=== PATIENT | male | born 1960 | race African-American/Black ===

== ENCOUNTER 2019-09-15 10:34 | Emergency (ER) | payer OTHER ==
[2019-09-15 10:39] VITALS: BP 100/56
--- NOTE | 2019-09-15 10:51 | ER Document Report ---
ED Medical Screen (RME) - General Chief Complaint: Hip Injury Stated Complaint: FALL/LEFT HIP PAIN Time Seen by Provider: 09/15/19 10:48 Mode of Arrival: Wheelchair Information source: Patient Notes: 59-year-old male presented to ED for complaint of pain to the left hip after tripping and falling last night. 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 His sister drove him to the emergency room due to not being able to walk on the left hip. He is on a pacemaker for syncopal episode he is also has diabetes and high cholesterol. He states he already wears braces due to not being able to stand up straight on both legs. I have greeted and performed a rapid initial assessment of this patient. A comprehensive ED assessment and evaluation of the patient, analysis of test results and completion of medical decision making process will be conducted by an additional ED providers. - Related Data Allergies/Adverse Reactions: No Known Allergies Allergy (Unverified 09/15/19 10:47) Physical Exam - Vital signs Vitals: Temp Pulse Resp BP Pulse Ox 97.9 F 98 16 100/56 L 98 09/15/19 10:38 09/15/19 10:38 09/15/19 10:38 09/15/19 10:38 09/15/19 10:38 Course - Vital Signs Vital signs: Temp Pulse Resp BP Pulse Ox 97.9 F 98 16 100/56 L 98 09/15/19 10:38 09/15/19 10:38 09/15/19 10:38 09/15/19 10:38 09/15/19 10:38
--- NOTE | 2019-09-15 11:48 | RADIOLOGY REPORT (SQ) ---
EXAM DESCRIPTION: HIP LEFT AP/LATERAL COMPLETED DATE/TIME: 09/15/2019 11:18 am REASON FOR STUDY: fall pain with fletcher movement COMPARISON: None. NUMBER OF VIEWS: Two views. TECHNIQUE: AP pelvis and additional frog-leg view of the left hip. LIMITATIONS: None. FINDINGS: MINERALIZATION: Normal. LEFT HIP: No fracture or dislocation. No worrisome bone lesions. RIGHT HIP: No fracture or dislocation. No worrisome bone lesions. PUBIS AND ISCHIUM: No fracture. PELVIS: No fracture. SACRUM: No fracture or dislocation. No worrisome bone lesions. LOWER LUMBAR SPINE: No fracture or dislocation. No worrisome bone lesions. No significant disc disea se. SOFT TISSUES: No findings. OTHER: No other significant finding. IMPRESSION: NEGATIVE STUDY OF THE LEFT HIP AND PELVIS. NO RADIOGRAPHIC EVIDENCE OF ACUTE INJURY. TECHNICAL DOCUMENTATION: JOB ID: [id number] [employer]- All Rights Reserved Reading location - IP/workstation name: [email or web address]
[2019-09-15 12:11] LABS: ABSOLUTE BASOPHILS # (AUTO) 0.1 10^3/uL (0.0-0.2); ABSOLUTE EOSINOPHILS # (AUTO) 0.1 10^3/uL (0.0-0.6); ABSOLUTE LYMPHOCYTES (AUTO) 0.5 10^3/uL (0.5-4.7); ABSOLUTE MONOCYTES (AUTO) 0.3 10^3/uL (0.1-1.4); ABSOLUTE NEUT (AUTO) 3.1 10^3/uL (1.7-8.2); BASOPHILS % (AUTO) 1.2 % (0-2); EOSINOPHILS % (AUTO) 2.5 % (0-6); HEMATOCRIT 24.8 % (37.9-51.0); HEMOGLOBIN 8.2 g/dL (13.5-17.0); LYMPHOCYTES % (AUTO) 12.1 % (13-45); MEAN CORPUSCULAR HEMOGLOBIN 31.4 pg (27.0-33.4); MEAN CORPUSCULAR VOLUME 95 fl (80-97); MONOCYTES % (AUTO) 7.5 % (3-13); PLATELET COUNT 139 10^3/uL (150-450); RED BLOOD COUNT 2.61 10^6/uL (4.35-5.55); RED CELL DISTRIBUTION WIDTH 12.4 % (11.5-14.0); SEGMENTED NEUTROPHILS % (AUTO) 76.7 % (42-78); TOTAL CELLS COUNTED % (AUTO) 100 %; WHITE BLOOD COUNT 4.1 10^3/uL (4.0-10.5)
[2019-09-15 12:26] LABS: ALBUMIN 3.7 g/dL (3.5-5.0); ALKALINE PHOSPHATASE 158 U/L (38-126); ANION GAP 9 (5-19); ASPARTATE AMINO TRANSFERASE 31 U/L (17-59); BILIRUBIN,DIRECT 0.1 mg/dL (0.0-0.4); BILIRUBIN,TOTAL 0.6 mg/dL (0.2-1.3); BLOOD UREA NITROGEN 41 mg/dL (7-20); CARBON DIOXIDE 14 mmol/L (22-30); CHLORIDE 120 mmol/L (98-107); GLUCOSE 121 mg/dL (75-110); TOTAL PROTEIN 6.8 g/dL (6.3-8.2)
[2019-09-15] MEDS ORDERED: FENTANYL CITRATE INJ/PF 100 MCG/2 ML AMPUL IV PRN (13:11)
[2019-09-15] MEDS ORDERED: ONDANSETRON HCL INJ/PF 4 MG/2 ML SDV IV ONE (13:11)
[2019-09-15] MEDS ORDERED: 1/2 NORMAL SALINE 1,000 ML with SODIUM BICARBONATE 50 MEQ IV ONE ×2 (13:12)
--- NOTE | 2019-09-15 13:20 | ER Document Report ---
ED General - General Chief Complaint: Fall Stated Complaint: FALL/LEFT HIP PAIN Time Seen by Provider: 09/15/19 10:48 Mode of Arrival: Wheelchair TRAVEL OUTSIDE OF THE [place] IN LAST 30 DAYS: No - HPI Notes: Mr. Mandeep Gómez is a moderately debilitated 59-year-old male with a chief complaint of fall and injury to his left hip. Patient is visiting here from the [facility]. This man has a long-standing history of well-controlled type 1 diabetes on insulin pump. This is been complicated by diabetic peripheral neuropathy and he walks with a quad cane and use of bilateral AFO orthoses due to chronic gait instability. He says around 3:00 this morning he attempted to g et up to the bathroom and stumbled falling on his left hip. He was subsequently able to get back to bed but the hip is painful and he is having difficulty bearing weight on it. This man has a pacemaker which was placed several years ago because of syncopal episodes. There was no syncope or presyncope today and he denies any injury to head or neck. Patient has known history of chronic kidney disease. He is currently on no specific therapy for this. He has been told he is approaching need for dialysis but is not yet dialyzed. He denies any peripheral edema, dyspnea or chest pain at this time. He denies nausea or vomiting at this time. Pertinent prior history: Pacemaker Glaucoma Hyperlipidemia Diabetes mellitus type 1 Diabetic peripheral neuropathy Chronic kidney disease Denies alcohol or illicit drug use. Non-smoker. No allergies. - Related Data Allergies/Adverse Reactions: No Known Allergies Allergy (Unverified 09/15/19 10:47) Home Medications: asa, atorvastatin, admelog, vit d Past Medical History - General Information source: Patient, Relative - Social History Smoking Status: Never Smoker Chew tobacco use (# tins/day): No Frequency of alcohol use: None Drug Abuse: None Family History: Reviewed & Not Pertinent Patient has suicidal ideation: No Patient has homicidal ideation: No Endocrine Medical History: Reports: Hx Diabetes Mellitus Type 1 Past Surgical History: Reports: Hx Orthopedic Surgery Review of Systems - Review of Systems Notes: Constitutional: Negative for fever. HENT: Negative for sore throat. Eyes: Negative for visual changes. Cardiovascular: Negative for chest pain. Respiratory: Negative for shortness of breath. Gastrointestinal: Negative for abdominal pain, vomiting or diarrhea. Genitourinary: Negative for dysuria. Musculoskeletal: Negative for back pain. Skin: Negative for rash. Neurological: Negative for headaches, weakness or numbness. 10 point ROS negative except as marked above and in HPI. Physical Exam - Vital signs Vitals: Temp Pulse Resp BP Pulse Ox 97.9 F 98 16 100/56 L 98 09/15/19 10:38 09/15/19 10:38 09/15/19 10:38 09/15/19 10:38 09/15/19 10:38 - Notes Notes: GENERAL: Well-developed well-nourished appearing in no acute distress. SKIN: Pale. Good turgor no rashes. HEAD: Normocephalic atraumatic. EYES: PERRLA. EOMI. Pale conjunctivae and sclerae clear. EARS: CANALS AND TMS CLEAR. NOSE: CLEAR. MOUTH: Moist mucosa. Good dentition. No stridor or edema. No drooling. Throat: Clear. NECK: Supple. No masses or thyromegaly. No adenopathy. Carotids 2+ without bruits. No JVD. BACK: Symmetrical without tenderness. CHEST: Pacemaker left anterior chest wall. Respirations unlabored. Breath sounds clear and symmetrical. HEART: Regular rhythm. No murmur gallop or rub. ABDOMEN: Soft nontender without masses, organomegaly or rebound. Bowel sounds normally active. No bruits. GENITALIA: Deferred. EXTREMITIES: Patient is wearing AFO braces both ankles. He is moderately tender over the lateral aspect of the left hip joint without step-off or crepitus. There is no shortening or abnormal rotation. He resists movements of the left hip in all planes secondary to pain. No edema. No calf tenderness. Cap refill less than 1.5 seconds. Dorsalis pedis and posterior tibial pulses 3+ and symmetrical. NEUROLOGICAL: GCS 15. Alert and oriented x3. Normal gait. Fluent speech. Cranial nerves II through XII intact. Diminished sensation both lower legs consistent with known diabetic peripheral neuropathy. Course - Re-evaluation Re-evalutation: 09/15/19 18:43 Patient had plain imaging of his left hip and pelvis which showed no obvious fracture. He was however very tender over his left hip and initially reluctant to bear weight. He received pain medication IV fentanyl. CT was obtained and showed no evidence of fracture. His discomfort appears to be primarily related to soft tissue contusion related to his fall. This man has significant chronic kidney disease. His bicarb is down he appears mildly acidotic although he is relatively asymptomatic. His creatinine is in excess of 4. His potassium is normal. Clinically is not fluid overloaded and got a chest x-ray that did not show any substantial vascular congestion. His EKG was normal. He received some IV hydration with normal saline with added sodium bicarbonate. 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 I will give him some Percocet to take for pain and suggest ice packs and use of a walker. - Vital Signs Vital signs: Temp Pulse Resp BP Pulse Ox 97.9 F 98 16 100/56 L 98 09/15/19 10:38 09/15/19 10:38 09/15/19 10:38 09/15/19 10:38 09/15/19 10:38 - Laboratory Result Diagrams: 09/15/19 12:02 09/15/19 12:02 Laboratory results interpreted by me: 09/15/19 09/15/19 12:02 12:02 RBC 2.61 L Hgb 8.2 L Hct 24.8 L Plt Count 139 L Lymph % (Auto) 12.1 L Chloride 120 H Carbon Dioxide 14 L BUN 41 H Creatinine 4.83 H Est GFR ( Amer) 15 L Est GFR (MDRD) Non-Af 13 L Glucose 121 H Calcium 8.0 L Alkaline Phosphatase 158 H - Diagnostic Test Radiology reviewed: Reports reviewed - EKG Interpretation by Me Rate: Normal Rhythm: NSR Additional EKG results interpreted by me: 09/15/19 13:24 Normal tracing Discharge - Discharge Clinical Impression: Diabetic peripheral neuropathy associated with type 1 diabetes mellitus Contusion of left hip Qualifiers: Encounter type: initial encounter Qualified Code(s): S70.02XA - Contusion of left hip, initial encounter Fall Qualifiers: Encounter type: initial encounter Qualified Code(s): W19.XXXA - Unspecified fall, initial encounter Chronic kidney disease Qualifiers: Chronic kidney disease stage: stage 4 (severe) Qualified Code(s): N18.4 - Chronic kidney disease, stage 4 (severe) Condition: Stable Disposition: HOME, SELF-CARE Additional Instructions: Return here as needed for new or worsening symptoms. Follow-up with your primary care doctor as soon as possible. Ice packs as needed. Take prescribed medications. Prescriptions: Citric Acid/Sodium Citrate [Bicitra Solution] 473 ml PO DAILYP #1 bottle Oxycodone HCl/Acetaminophen [Percocet 5-325 mg Tablet] 1 - 2 tab PO Q4H PRN 7 Days #20 tablet PRN Reason:
--- NOTE | 2019-09-15 14:29 | RADIOLOGY REPORT (SQ) ---
EXAM DESCRIPTION: CT PELVIS WITHOUT COMPLETED DATE/TIME: 09/15/2019 2:09 pm REASON FOR STUDY: ESRD, FALL, PAIN COMPARISON: None. TECHNIQUE: CT scan of the pelvis performed without intravenous or oral contrast. Images reviewed wi th soft tissue and bone windows. Reconstructed coronal and sagittal MPR images reviewed. All images stored on PACS. All CT scanners at this facility use dose modulation, iterative reconstruction, and/or weight based d osing when appropriate to reduce radiation dose to as low as reasonably achievable (ALARA). [facility]: Dose Right [facility]: CareDose [facility]: Dose Right [facility]: Teradose 4D [facility]: Smart iFlexMe RADIATION DOSE: CT Rad equipment meets quality standard of care and radiation dose reduction techniq ues were employed. CTDIvol: 4.8 mGy. DLP: 191 mGy-cm. mGy. LIMITATIONS: None. FINDINGS: PELVIC BONES: No acute fracture. No worrisome bone lesions. VISUALIZED SPINE: No acute findings. HIP(S): No acute fracture or dislocation. No worrisome bone lesions. PELVIC SOFT TISSUES: No significant findings. EXTRAPELVIC SOFT TISSUES: There are some small inguinal lymph nodes. These are more numerous on the left. OTHER: No other significant finding. IMPRESSION: Mild inguinal adenopathy. No fractures or other acute findings in the pelvis. TECHNICAL DOCUMENTATION: JOB ID: [id number] Quality ID # [id number]: Final reports with documentation of one or more dose reduction techniques (e.g., Au tomated exposure control, adjustment of the mA and/or kV according to patient size, use of iterative reconstruction technique) 2010 [email or web address]- All Rights Reserved Reading location - IP/workstation name: [email or web address]
[2019-09-15] MEDS ORDERED: SODIUM BICARBONATE 8.4% INJ 50 MEQ/50 ML DISP.SYRIN ONE (14:33)
--- NOTE | 2019-09-15 14:36 | RADIOLOGY REPORT (SQ) ---
EXAM DESCRIPTION: CHEST SINGLE VIEW COMPLETED DATE/TIME: 09/15/2019 2:03 pm REASON FOR STUDY: ESRD COMPARISON: None. EXAM PARAMETERS: NUMBER OF VIEWS: One view. TECHNIQUE: Single frontal radiographic view of the chest acquired. RADIATION DOSE: NA LIMITATIONS: None. FINDINGS: LUNGS AND PLEURA: No opacities, masses or pneumothorax. No pleural effusion. MEDIASTINUM AND HILAR STRUCTURES: No masses. Contour normal. HEART AND VASCULAR STRUCTURES: Heart normal in size. Normal vasculature. BONES: No acute findings. HARDWARE: Pacemaker. OTHER: No other significant finding. IMPRESSION: NO ACUTE RADIOGRAPHIC FINDING IN THE CHEST. TECHNICAL DOCUMENTATION: JOB ID: [id number] [employer]- All Rights Reserved Reading location - IP/workstation name: [email or web address]
--- NOTE | 2019-09-16 12:10 | EKG REPORT ---
SEVERITY:- NORMAL ECG - SINUS RHYTHM : Confirmed by: Alexis Murphy 16-Sep-2019 12:09:28
== END 2019-09-15 19:27 | disposition home or self-care (01) ==
LOC: ER 10:34
DX: E10.42 Type 1 diabetes mellitus with diabetic polyneuropathy (principal); S70.02XA Contusion of left hip, initial encounter; M25.552 Pain in left hip; N18.4 Chronic kidney disease, stage 4 (severe); W19.XXXA Unspecified fall, initial encounter; Z79.4 Long term (current) use of insulin; Z96.41 Presence of insulin pump (external) (internal)
CPT/HCPCS: 93005; 99284; 96361; 96374; 96375; 36415; 85025; 80053; 71045; 73502; 72192; 93010; J3010; J3490; J2405